=== PATIENT | female | born 1975 | race Native Hawaiian/Other Pacific Islander ===

== ENCOUNTER 2019-05-03 19:15 | Emergency (ER) | payer BC ==
[~2019-05-03] VITALS: Ht 162.6 cm; Wt 104.3 kg
[2019-05-03 20:06] LABS: PLATELET COUNT 261 K/uL (152-353)
[2019-05-03 20:14] LABS: POTASSIUM 3.5 mmol/L (3.6-5.2)
[2019-05-03 21:45] VITALS: BP 124/76; TEMP 98.6
== END 2019-05-03 21:45 | disposition home or self-care (01) ==
LOC: ED 19:15
PROVIDERS: Emergency Medicine
DX: E11.9 Type 2 diabetes mellitus without complications (principal); J20.9 Acute bronchitis, unspecified; E86.0 Dehydration
CPT/HCPCS: 36415; 80053; 85027; 85379; 94664; 96372; 99283; J1885